=== PATIENT | male | born 1940 | race Caucasian/White ===

== ENCOUNTER → 2016-11-29 | Outpatient (CLI) | payer OTHER ==
[~2016-11-29] MED LIST: ALEVE220 MG PO; AMBEREN; ASPIRIN EC81 M1 PO; ASPIRIN325 PO; CYCLOBENZAPRINE10 MG PO; FISHOIL; MEDROLDOSEPACK PO; MUCINEX TA600 MG/TA2 PO; NABUMETONE 500500 M1 PO; NIFEDIPINE ER30 M1 PO; NORCO 5-325 TA1 EACH PO; PREPARATION H1 EAC5 RC; PREVACID 30MG C30 M1 PO; PROBIOTIC1 EAC1 PO; VITAMIN B-12500 MCG PO
--- NOTE | ~2016-11-29 | SLE ---
[facility] [place] [address] POLYSOMNOGRAPHY STUDY Name: BAILEE MONTE Room #: REG [facility]#: [id number] Admission: 11/29/16 Attend Phys: Miguel Horn MD Discharge: Date of : 36 Report #: [id number] THIS REPORT FOR: //name// CC: Eugenio Horn MD A 76-year-old, height 5 feet 11 inches, weight 220 pounds, usually goes to bed at 11 p.m., wakens after 6 to 7 hours of sleep, gets out of bed between 6:30 and 8, feels refreshed. No definite daytime somnolence, snores when he does not use his CPAP. He has a new full facemask, air leak, and the patient feels pressure is too high. He was thus sent for a CPAP titration. CPAP TITRATION: Titrated on 6, 7, 8, 9, 11, 13, and 15 cm water pressure. At 13 cm water pressure, the patient was seen for 230 minutes of which 46 minutes was in REM sleep. There was 7 obstructive apneas, 8 central apneas, 14 hypopneas, apnea-hypopnea index 7.5 events per sleep hour. Low oxygen saturation 82%. At 15 cm water pressure, the patient was seen for 114 minutes of which 28 minutes was in REM sleep. Apnea-hypopnea index 0 events per sleep hour, low oxygen saturation 93%. PACs and SVT noted. IMPRESSION: 1. Obstructive sleep, apnea/hypopnea, G47.33. 2. Premature atrial contractions/arrhythmia noted. 3. Throughout the night, periodic limb movement with arousal index of 2.5 events per sleep hour, however, periodic limb movement index was 89. 4. CPAP improves the patient's apnea-hypopnea index, snoring, and desaturation. SUGGESTIONS: 1. In addition to the specific therapy, the patient should be cautioned regarding driving or operating dangerous machinery unless fully alert. The patient should be cautioned regarding the use of respiratory depressants. 2. Weight loss and TSH per Dr. Horn. 3. Further evaluation regarding arrhythmia is recommended and may consider a Holter monitor. 4. CPAP setting of 15 cm water pressure appears to control events. This patient was seen supine in REM sleep. 5. May consider an auto titrating CPAP or a BiPAP titration night if the patient is intolerant to CPAP. 6. Mask fit will be of utmost importance. 7. If signs and symptoms do not improve with therapy, further evaluation is recommended. Please do not hesitate to contact me if I may be of further assistance. [address] [address] POLYSOMNOGRAPHY STUDY Name: BAILEE MONTE Room #: REG [facility] Arnoldo#: [id number] Admission: 11/29/16 Attend Phys: Miguel Horn MD Discharge: Date of : 38 Report #: [id number] 8. Further discussion regarding leg movements. 9. Please do not hesitate to contact me if I may be of further assistance. <ELECTRONICALLY SIGNED> By: Qing Sosa MD 12/01/162057 [id number] Qing Sosa MD /nt
== END ==
LOC: SLEEPLAB 15:00
DX: G47.33 Obstructive sleep apnea (adult) (pediatric) (principal)

== ENCOUNTER → 2018-10-03 | Outpatient (CLI) | payer OTHER ==
[~2018-10-03] VITALS: Ht 180.3 cm; Wt 100.8 kg
[~2018-10-03] MED LIST changes: +METHOCARBAMOL500 M1 PO; +TYLENOL EXTRA500 MG PO
--- NOTE | ~2018-10-03 | HPC ---
[facility] [address] [address] PAIN MANAGEMENT CONSULTATION Name: BAILEE MONTE Room #: REG [facility].#: [id number] Admission: 10/03/18 Attend Phys: Jay Molina DO Discharge: Date of : 38 Report #: [id number] THIS REPORT FOR: //name// CC: Jay Clark MD DATE OF SERVICE: 10/03/2018 CHIEF COMPLAINT: Low back pain. HISTORY OF PRESENT ILLNESS: As you know, the patient is a very pleasant 78-year-old male who has returned today in followup visit with recurrent low back pain. The patient was seen in consultation on 02/07/2017, diagnosed with chronic low back pain secondary to facet changes in the lumbar spine. He was started on medication management as he wished to remain conservative with his treatment option. He was given a prescription of nabumetone and given a muscle relaxant, which apparently has been working very well until just recently. He returns today in followup visit to discuss reinitiation of medication therapy as his pain has returned with increasing activity. He is in the process of moving from a large home, downsizing to [address] and is about 1/4 of his current home size. This has been exacerbating his ongoing low back symptoms due to this move. He returns to discuss options for treatment. ALLERGIES: PENICILLIN. CURRENT MEDICATIONS: Acetaminophen Extra Strength 500 mg every 8 hours, guaifenesin 600 mg p.r.n., aspirin 325 mg 2 tabs p.o. at bedtime, multivitamin 1 tab per day, lansoprazole 30 mg per day, nifedipine ER 30 mg once a day. SOCIAL HISTORY: The patient denies tobacco, but is heavily exposed to secondhand smoke. Denies IV or illicit drug use. Admits to one alcoholic beverage every 2 weeks. 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 He is unaccompanied today. IMAGING: No new imaging available. PQRS: The patient has a history of osteoarthritis of the low back, bilateral hips, bilateral knees. He denies rheumatoid arthritis. His pain intensity is 3/10. He is not fall risk, has not had a fall in the last 3 months. He is not on blood thinners. He is treated for hypertension. He is not on opioids. He has got a low assessment for opioid addiction. Pain impact tool 47/70, indicating moderate to severe interference of daily activities secondary to pain. PHYSICAL EXAMINATION: [address] [address] PAIN MANAGEMENT CONSULTATION Name: BAILEE MONTE Room #: REG [facility]#: [id number] Admission: 10/03/18 Attend Phys: Jay Molina DO Discharge: Date of : 38 Report #: [id number] VITAL SIGNS: Blood pressure 141/71, pulse is 62, respiratory rate 18 and unlabored. The patient is 97% on room air. Height 5 feet 11 inches tall, weight 222.2 pounds, BMI calculated 31.0. GENERAL: Well-developed, well-nourished, well-hydrated 78-year-old male, appearing his stated age. He is placing current pain score at approximately 3/10. HEENT: Normocephalic, atraumatic. Pupils equal, round, reactive to light. EXTREMITIES: Show no clubbing, no cyanosis, no edema. MUSCULOSKELETAL: Lower extremity strength is symmetrical 5/5, muscle bulk and tone is equal and symmetrical in lower extremities. Deep tendon reflexes are symmetrical at patella and Achilles. Ankle clonus negative. Babinski is negative. Seated straight leg raising negative. Supine straight leg raising negative. Zenaida's test negative. Modified Gaenslen's positive for axial low back. ASSESSMENT: 1. Chronic low back pain. 2. Lumbosacral spondylosis without radiculopathy. 3. Lumbar degeneration. 4. Chronic intractable pain. PLAN: 1. The patient returns today in followup visit, stating an exacerbation of symptoms while doing heavy lifting and activities around his impending move. He had been doing very well just prior to this condition and initiation. He stated no injury, no trauma. He returns today, stating that he has been utilizing dsgd-ext-svygsim nonsteroidal anti-inflammatories with good efficacy and had "borrowed some of his 's" methocarbamol with good efficacy. He returns today, requesting adjustments in medication therapy to address current pain, so that he can continue to participate in his move. 2. It does appear the patient is suffering from facet arthropathy of the lumbar spine. Given his age and his previous history, I do feel that he has exacerbated his typical facet arthropathy pain. Recommend reinitiation of a nonsteroidal anti-inflammatory in the form of nabumetone. He did very well with this medication in the past. We will restart the nabumetone 500 mg t.i.d. with meals. He will watch for any dyspepsia, worsening blood pressure, lower extremity edema. If he notes any side effects, contact our clinic immediately after discontinuing the therapy. 3. We will place the patient on a dosing of methocarbamol 500 mg dose, 1 tab p.o. t.i.d. I have given the patient #60 tablets with 2 refills. The patient was advised to watch for side effects of this medication including somnolence, decreased mental acuity, disorientation, confusion, mental slowing. He is not to drive or operate heavy equipment while on this medication. I have advised the patient also to take only medications prescribed to him. He is not to utilize other individual's medications due to safety concerns. He states he understands and will use the medication prescribed to him and only to him. He [facility] [address] [place] [address] PAIN MANAGEMENT CONSULTATION Name: BAILEE MONTE [facility] [id number] Admission: 10/03/18 Attend Phys: Jay Molina DO Discharge: Date of : 38 Report #: [id number] is not to share this medication with other individuals. 4. We will see the patient back in followup visit on an as-needed basis for possible interventional treatments or to discuss other treatment options medically. <ELECTRONICALLY SIGNED> By: Jay Molina DO 10/09/18 0755 0736 1146 Jay Molina DO /nt
[2018-10-03 09:17] VITALS: BP 141/71
== END ==
LOC: PAIN 07:02
DX: M47.27 Other spondylosis with radiculopathy, lumbosacral region (principal); M54.5 Low back pain; G89.4 Chronic pain syndrome

== ENCOUNTER → 2019-06-18 | Outpatient (CLI) | payer OTHER ==
[2019-06-18 12:58] LABS: ALBUMIN 3.5 g/dL (3.4-5.0); CALCIUM 8.6 mg/dL (8.5-10.1); CREATININE 1.8 mg/dL (0.7-1.3); POTASSIUM 3.9 mmol/L (3.5-5.1); TOTAL BILIRUBIN 1.1 mg/dL (<0.1-1.0); TOTAL PROTEIN 7.3 g/dL (6.4-8.2)
== END ==
LOC: CAT 12:15
PROVIDERS: Nurse Practitioner
DX: K40.90 Unilateral inguinal hernia, without obstruction or gangrene, not specified as recurrent (principal); K42.0 Umbilical hernia with obstruction, without gangrene; K57.30 Diverticulosis of large intestine without perforation or abscess without bleeding; R91.8 Other nonspecific abnormal finding of lung field; J84.10 Pulmonary fibrosis, unspecified; I70.203 Unspecified atherosclerosis of native arteries of extremities, bilateral legs; I70.0 Atherosclerosis of aorta

== ENCOUNTER → 2019-09-04 | Outpatient (CLI) | payer OTHER ==
[~2019-09-04] VITALS: Ht 180.3 cm; Wt 97.5 kg
[~2019-09-04] MED LIST changes: +BENTYL 10 MG CA10 M1 PO; +CALCIUM 500 +1 EAC5 PO; +CENTRUM SILVER1 EAC2 PO; +FLOMAX0.4 MG PO; +PREVACID30 MG PO
--- NOTE | 2019-09-06 16:06 | PATH ---
[facility] [place] [address] PATHOLOGY RPT PROCEDURE Name: BAILEE RIVERA Room #: REG [facility] Butch.#: [id number] Admission: 09/04/19 Date of : 36 Discharge: Report #: [id number] Path Case #: [id number] [facility] Accession Number: [id number] . 01 Material submitted: . PART A: colon - RANDOM COLON BIOPSY R/O MICROSCOPIC COLITIS PART B: colon - POLYP AT DESCENDING COLON. Modifiers: descending PART C: colon - POLYP AT SIGMOID COLON. Modifiers: sigmoid . 01 Clinical history: . Preop DX: hx of polyps, diarrhea Postop DX: colon polyps A. R/O microscopic colitis . 02 Diagnosis: A. Large intestinal mucosa, random colon rule out microscopic colitis, endoscopic biopsy: - Acute colitis, mild to moderate. - Negative for microscopic colitis. - Negative for dysplasia or malignancy. . B. Polyp, at descending colon, endoscopic biopsy: - Inflamed tubular adenoma. - Negative for high grade dysplasia. . C. Polyp, at sigmoid colon, endoscopic biopsy: - Tubular adenoma. - Negative for high grade dysplasia. . (IUV:mml; 09/06/2019) QLM 09/06/2019 1306 Local . 02 Comment: Sections of the colonic mucosa designated "random colon" show focal cryptitis, and a moderately cellular lamina propria composed predominantly of lymphocytes and plasma cells and occasional eosinophils. Surface ulceration is not identified. There are no crypt abscesses, granulomas or viral inclusions. The process affects all the fragments with a similar intensity. Given the description, the differential diagnosis includes acute colitis of either self-limited etiology, infectious etiology, medication/drug-induced etiology, acute diverticulitis as well as early inflammatory bowel disease. Please correlate with clinical as well as endoscopic findings. . (IUV:mml; 09/06/2019) . 02 Electronically signed: [place] [address] PATHOLOGY RPT PROCEDURE Name: FLORIDALMA RIVERAALD Isabel Room #: REG [facility] Arnoldo#: [id number] Admission: 09/04/19 Date of : 38 Discharge: Report #: [id number] Path Case #: [id number] Rosalva Mathur MD, Pathologist NPI- [id number] . 01 Gross description: . A. Received in formalin labeled "Bailee Rivera random colon bx," are four segments of rowland soft tissue measuring 0.9 x 0.8 x 0.1 cm in aggregate dimensions and ranging from 0.3 to 0.8 cm in maximum dimension. The specimen is submitted entirely in cassette A1. . B. Received in formalin labeled "Bailee Rivera, polyp at descending colon," is a segment of rowland soft tissue measuring 0.4 x 0.3 x 0.2 cm in greatest dimensions admixed with scant brown vegetative material. The specimen is submitted entirely in cassette B1. . C. Received in formalin labeled "Bailee Rivera, polyp at sigmoid colon," is a segment of rowland-brown soft tissue measuring 0.8 x 0.5 x 0.4 cm in greatest dimensions admixed with a 0.4 x 0.4 x 0.1 cm aggregate of rowland-brown vegetative material. The soft tissue segment is inked and trisected, and the specimen is submitted entirely in cassette C1. ([facility]; 09/05/2019) XDC/XDC 09/05/2019 0934 [facility] . Pathologist provided ICD-10: K52.9, D12.4, D12.5 . 02 CPT . 265116, 719867, 301433 Specimen Comment: A courtesy copy of this report has been sent to Specimen Comment: [phone], . Specimen Comment: Report sent to / DR PAYNE Performed at: [address], [place] [id number] MD Dewayne Montez MD Phone: [phone] Performed at: [address] [id number] MD Rosalva Mathur MD Phone: [phone]
--- NOTE | 2019-09-09 12:48 | P ---
[facility] [place] [address] [place] [address] PROCEDURE REPORT Name: BAILEE MONTE Room #: REG [facility]#: [id number] Admission: 09/04/19 Attend Phys: Constantino Kyle Discharge: Date of : 38 Report #: [id number] THIS REPORT FOR: //name// CC: Constantino Clark MD DATE OF SERVICE: 09/04/2019 PROCEDURE PERFORMED: Colonoscopy with polypectomies. HISTORY OF PRESENT ILLNESS: The patient is an 78-year-old male with recent change in stools, was having constipation now more on the diarrhea side, also complains of crampy abdominal pain at times. No family history of colon cancer. DESCRIPTION OF PROCEDURE: The risks and benefits of the procedure were explained to the patient, those risks including but not limited to bleeding, perforation and the risk of sedation. He understood these risks and gave informed consent. Sedation was given using propofol per anesthesia. Next, a digital rectal exam was initially performed, which was normal. Next, using a standard Olympus colonoscope, the scope was placed in the patient's anus and advanced under direct vision to the cecum. The overall prep was good. The cecum and ileocecal valve were normal in appearance. Ascending and transverse colon were normal. In the descending colon, a 5 mm sessile polyp was noted. This was removed with cold forceps. Random biopsies were also obtained to rule out microscopic colitis. Several diverticula were noted in the sigmoid colon. Also noted was an 8 mm sessile polyp. This was removed by snare cautery. The rectal mucosa was normal in general. There was mild radiation changes again noted. No evidence of bleeding. Small internal hemorrhoid also noted. The scope was then withdrawn and the procedure terminated. The patient tolerated the procedure well. IMPRESSION: 1. Two small colonic polyps. 2. Sigmoid diverticulosis. 3. Mild radiation changes again noted. 4. Small internal hemorrhoids. 5. Otherwise, normal colonoscopy. RECOMMENDATIONS: 1. Await biopsy results. 2. Would recommend a trial of probiotics. [facility] [address] [place] [address] PROCEDURE REPORT Name: BAILEE MONTE Room #: JJ Mclaughlin#: [id number] Admission: 09/04/19 Attend Phys: Constantino Kyle Discharge: Date of : 38 Report #: [id number] Thank you for allowing me to participate in his care. <ELECTRONICALLY SIGNED> By: Constantino Florentino MD 09/09/19 1248 1234 0140 Constantino Florentino MD /nt
== END | disposition home or self-care (01) ==
LOC: GI 09:18
DX: R19.4 Change in bowel habit (principal); D12.4 Benign neoplasm of descending colon; D12.5 Benign neoplasm of sigmoid colon; K52.9 Noninfective gastroenteritis and colitis, unspecified; K57.30 Diverticulosis of large intestine without perforation or abscess without bleeding; K64.8 Other hemorrhoids; I10 Essential (primary) hypertension; G47.30 Sleep apnea, unspecified; Z85.528 Personal history of other malignant neoplasm of kidney; Z85.46 Personal history of malignant neoplasm of prostate; K21.9 Gastro-esophageal reflux disease without esophagitis; Z98.890 Other specified postprocedural states; Z90.5 Acquired absence of kidney; Z90.79 Acquired absence of other genital organ(s); Z88.0 Allergy status to penicillin; Z79.82 Long term (current) use of aspirin; Z79.899 Other long term (current) drug therapy
CPT/HCPCS: 62110; 62900

== ENCOUNTER 2020-09-25 14:50 | Emergency (ER) | payer OTHER ==
[~2020-09-25] VITALS: Ht 177.8 cm; Wt 99.8 kg
--- NOTE | ~2020-09-25 | EKG ---
[facility] [place] [address] ELECTROCARDIOGRAM REPORT Name: BAILEE MONTE Room #: [facility]#: [id number] Admission: 09/25/20 Attend Phys: Discharge: Date of : 38 Report #: [id number] THIS REPORT FOR: cc: Eugenio Clark MD, Neal A. MD Epiphany, Epiphany MD ~ THIS REPORT FOR: //name// [facility] ED Test Date: 2020-09-25 Test Time: 17:54:09 Pat Name: BAILEE MONTE Department: Room: Gender: M Guest Service Agent: [email or web address] : 1940 Requested By: Luz Guerrero Order Number: [id number] MD: Measurements Intervals [place] Rate: 52 P: 23 ID: [id number] QRS: 9 QRSD: 102 T: 22 QT: 449 QTc: 418 Interpretive Statements Sinus rhythm Prolonged ID interval Compared to ECG 01/08/1998 08:45:00 First degree AV block now present [email or web address] By: 1754 1754 Epiphany EpiphanyMD /EPI
[2020-09-25] MEDS ORDERED: BENICAR40 MG PO (15:23)
[2020-09-25] MEDS ORDERED: MAGNESIUM400 MG PO (15:24)
[2020-09-25] MEDS ORDERED: TOPROL XL50 MG PO (15:24)
[2020-09-25] MEDS ORDERED: FISH OIL 1,0001 EAC9 PO (15:25)
[2020-09-25] MEDS ORDERED: NORVASC5 MG PO (17:55)
[2020-09-25 18:13] VITALS: BP 171/67
== END 2020-09-25 18:13 | disposition home or self-care (01) ==
LOC: ER 14:50
DX: I10 Essential (primary) hypertension (principal); K21.9 Gastro-esophageal reflux disease without esophagitis; Z98.890 Other specified postprocedural states; Z85.46 Personal history of malignant neoplasm of prostate; Z79.899 Other long term (current) drug therapy; Z79.82 Long term (current) use of aspirin; Z88.0 Allergy status to penicillin